=== PATIENT | female | born 2000 | race Caucasian/White ===

== ENCOUNTER → 2023-04-25 | Outpatient (CLI) | payer OTHER ==
--- NOTE | 2023-04-29 12:54 | MR ---
Left ankle HISTORY: Pain following trauma. COMPARISON: None. TECHNIQUE: Multiecho multiplanar images of the left ankle were obtained. FINDINGS: The osseous structures are intact and there is no bone contusion or fracture. There is a small joint effusion. There is a complete tear of the anterior talofibular ligament. The posterior talofibular ligament as well as the anterior and posterior tibial fibular ligaments are intact. There is no evidence of tendon injury involving the Achilles tendon, peroneal tendons or the flexor o r extensor ankle tendons. Plantar soft tissues are normal. There is mild/moderate soft tissue swelling in the anterior and mediastinal soft tissues and moderate soft tissue swelling in the lateral soft tissues. IMPRESSION: 1. No osseous abnormality. 2. Tear of the anterior talofibular ligament. 3. Soft tissue swelling of the medial, anterior and lateral soft tissues. 4. Tibiotalar joint effusion. 5. No tendon injuries.
== END | disposition home or self-care (01) ==
LOC: RADMRIMAIN 16:38
PROVIDERS: ATTEND Orthopaedic Surgery
DX: S93.492A Sprain of other ligament of left ankle, initial encounter (principal); M25.472 Effusion, left ankle

== ENCOUNTER 2023-06-01 08:46 | Day surgery (SDC) | payer OTHER ==
[~2023-06-01 08:46] MED LIST: DEXAMETHASONE SOD PHOSPHATE 4 MG/ML 1 ML VIAL IV ONE; HYDROmorphone 0.5 MG/0.5 ML SYRINGE IVP PRN; LACTATED RINGERS 1,000 ML IV SCH; LIDOCAINE 1% (10MG/ML) FOR IV START INTRADERMA PRN; ONDANSETRON 4 MG/2 ML VIAL IVP ONE; droPERidol 5 MG/2 ML VIAL IVP ONE
[2023-06-01] MEDS ORDERED: MIDAZOLAM 2 MG/2 ML VIAL IVP ONE (10:16)
[2023-06-01] MEDS ORDERED: fentaNYL (PF) 50 MCG/ML 2 ML AMP IVP ONE (10:16)
[2023-06-01] MEDS ORDERED: ROPIVACAINE 5 MG/ML 30 ML VIAL ONE (10:59)
[2023-06-01] MEDS ORDERED: fentaNYL (PF) 50 MCG/ML 2 ML AMP ONE (10:59)
[2023-06-01] MEDS ORDERED: MIDAZOLAM 2 MG/2 ML VIAL ONE (10:59)
[2023-06-01] MEDS ORDERED: LIDOCAINE 1% INJ 10MG/ML (20 ML MDV) ONE (10:59)
[2023-06-01] MEDS ORDERED: PROPOFOL 10 MG/ML 20 ML VIAL IV ONE (10:59)
[2023-06-01] MEDS ORDERED: SODIUM CHLORIDE 0.9% (PF) 10 ML VIAL ONE (10:59)
[2023-06-01] MEDS ORDERED: ceFAZolin 1,000 MG in SODIUM CHLORIDE 0.9% 1,000 ML IRRIGATION ONE (11:35)
--- NOTE | 2023-06-01 12:11 | P.OP ---
Date of Procedure: 06/01/23 Preoperative Diagnosis: Left ankle instability Postoperative Diagnosis: Same Procedure(s) Performed: Secondary repair left lateral ankle ligaments Implants: Arthrex internal brace Arthrex fiber Marcio anchors 2 Anesthesia: GETA Surgeon: Lenny Crowder Estimated Blood Loss (ml): 2 Pathology: none sent Condition: stable Disposition: PACU Description of Procedure: Prior to the patient being brought to the operating room, anesthesia administered a nerve block on the affected extremity. The patient was brought into the operative room and placed on table supine position. Timeout was taken to confirm correct patient identifiers, correct laterality of surgery, and correct procedure. Once all staff in the room were in agreement with the timeout, the patient was induced and placed under general anesthesia. A well- padded tourniquet was placed on the left calf and a bump underneath the hip of the expected extremity to internally rotate the leg. The leg was then prepped and draped in usual manner. The leg was exsanguinated and the tourniquet inflated to 250 mmHg. Attention was directed over the anterior lateral ankle, where a incision was made just anterior to lateral malleolus. The incision was deepened down to the subcutaneous tissue careful to identify, avoid, and retract any neurovascular structures and cauterize any bleeding vessels. Blunt dissection was continued down to the lateral ankle joint capsule and ligamentous structures. The capsule and ligamentous structures were sharply incised off of the anterior surface the lateral malleolus. A Clinton was used to remove the cortical bone on the anterior surface the lateral malleolus and the roughened edges smoothed with a rasp. This is to allow adhesion of the ligaments upon repair. With the ankle in neutral position, the soft tissue over the lateral aspect of the talus, anterior to the joint surface, and near the junction of the neck, was palpated for the location of the 4.75 mm anchor. A small stab incision was made through the tissue and then the drill hole for the 4.75 mm anchor was made into the talus in such a way to avoid the ankle and subtalar joints. The hole was tapped and then the 4.75 mm anchor inserted and advanced down to proper depth. The documentation coordinator was removed and the suture was set aside. The same drill bit was used for the drill hole in the lateral malleolus for the 3.5 mm anchor. Straw Hat Washer Operator holes for the fiber Huber anchors were made, one inferior and one superior, to the 3.4 mm drill hole. With the drill guide still in place, the fiber Huber anchors were inserted through the guide and then impacted down to proper depth. The guide was removed as was the documentation coordinator. Tension was placed on the suture to lock the anchor into the bone. The wound is then thoroughly irrigated with antibiotic saline. The suture on the fiber Huber anchors was used to capture the distal ligamentous and capsular structures. With the ankle and maximum dorsiflexion and eversion, the suture was tied bringing the ligament and capsular structures back to the anterior surface the lateral malleolus. The 2 arms of the suture from the 4.75 mm anchor were then inserted through the 3.5 mm anchor, which was then aligned with the drill hole lateral malleolus. Utilizing described tensioning techniques, the anchor and suture were inserted into lateral malleolus and the anchor advanced until proper depth. At that point ankle was tested for stability: Were anterior drawer and inversion stress are negative. The wound is irrigated with antibiotic saline. The fiber Huber suture was then used to sew the soft tissue flap from the periosteum of the lateral malleolus over the repair site in a pants over vest fashion. The subcutaneous layer was closed with 4-0 Monocryl. And skin closure done with 4-0 Stratafix in a running subcuticular manner. Dermal glue was placed over the incision and allowed to dry. Steri- Strips were applied and then a Arthrex jumpstart dressing. A dry sterile dressing was applied to the ankle. The tourniquet was released and capillary refill return to all digits on the foot.
[2023-06-01 12:32] VITALS: TEMP 97
--- NOTE | 2023-06-01 13:38 | P.ANPRN ---
Procedure Note - Anesthesia - Nerve Block Performed Left Popliteal Single Time Out Performed: Yes (1015) Date of Procedure: 06/01/23 Procedure Start Time: 10:16 Procedure Stop Time: 10:20 Location of Patient: PreOp Indication: Acute Post-Operative Pain, Requested by Surgeon Specifically requested for management of pain by DrWilman: Lenny Crowder Sedation Type: Sedate with meaningful contact maintained Preparation: Sterile Prep Position: Supine Catheter: None Needle Types: Pajunk Needle Gauge: 21 Ultrasound used to visualize needle placement: Yes Ultrasound used to observe medication spread: Yes Injectate: 0.5% Ropivacaine (see comment for volume) (20cc +10cc nacl pf) Blood Aspirated: No Pain Paresthesia on Injection Noted: No Resistance on Injection: Normal Image Stored and Saved: Yes Events: Uneventful and Well Tolerated
--- NOTE | 2023-06-01 13:38 | P.ANPRN ---
Procedure Note - Anesthesia - Nerve Block Performed Left Adductor Canal Single Time Out Performed: Yes (1015) Date of Procedure: 06/01/23 Procedure Start Time: Procedure Stop Time: Location of Patient: PreOp Indication: Acute Post-Operative Pain, Requested by Surgeon Specifically requested for management of pain by DrWilman: Lenny Crowder Sedation Type: Sedate with meaningful contact maintained Preparation: Sterile Prep Position: Supine Catheter: None Needle Types: Pajunk Needle Gauge: 21 Ultrasound used to visualize needle placement: Yes Ultrasound used to observe medication spread: Yes Injectate: 0.5% Ropivacaine (see comment for volume) (20cc +10cc nacl pf) Blood Aspirated: No Pain Paresthesia on Injection Noted: No Resistance on Injection: Normal Image Stored and Saved: Yes Events: Uneventful and Well Tolerated
[2023-06-01 14:34] VITALS: BP 104/64; PULSE 78; RESP 18
== END 2023-06-01 14:05 | disposition home or self-care (01) ==
LOC: OR 08:46
PROVIDERS: ATTEND Podiatrist
DX: M25.372 Other instability, left ankle (principal); G89.18 Other acute postprocedural pain; F41.9 Anxiety disorder, unspecified; F10.90 Alcohol use, unspecified, uncomplicated; Z79.899 Other long term (current) drug therapy; Z82.49 Family history of ischemic heart disease and other diseases of the circulatory system; Z83.3 Family history of diabetes mellitus
CPT/HCPCS: 64447; 81025; 64445; 27698; C1713 ×3; C1751; J2250; J1100; J0690 ×2; J2405; J3010